=== PATIENT | male | born 1965 | race African-American/Black ===

== ENCOUNTER → 2017-01-24 | Outpatient (CLI) | payer MEDICAID ==
[~2017-01-24] MED LIST: ASPIRIN PO; DICLOFENAC PO; IBUPROFEN800 MG PO; NO MEDICATIONS; TYLENOL #3 PO; VICODIN 5/1 TAB 5/50 PO
--- NOTE | ~2017-01-24 | PFT ---
[id number] [facility]. [place], [place] [address] [id number] O MR#: [id number] NAME: GIO GANDARA ROOM: SEX: M STUDY DATE/TIME: : 1965 AGE: 51 STUDY DESCRIPTION: Attending Physician: Mikael Valenzuela M.D. Referring Physician: Mikael Valenzuela M.D. Primary Care Physician: Mikael Valenzuela M.D. PULMONARY DIAGNOSTIC REPORT EXAM Pulmonary function test. FINDINGS Spirometry is normal. There is a significant response to bronchodilators of 17%, yielding an FEV1 at 3.32 L, 112% of predicted. Flow volume loop is unremarkable and essentially normal after bronchodilators. Total lung capacity is reduced to 77%, which also suggests a concomitant restrictive defect. Diffusion capacity is 86%. Complicated PFT could be underlying asthma but reduction of total lung capacity suggests a concomitant restrictive defect and clinical correlation needed. Dictated by... Karol Whittaker/phani TD: 02/02/2017 13:00 JOB #: [id number] CC: Mikael Valenzuela M.D. PULMONARY DIAGNOSTIC REPORT
== END | disposition home or self-care (01) ==
LOC: CRC 12:33
DX: R06.00 Dyspnea, unspecified (principal)
CPT/HCPCS: 94060; 94726; 94729